=== PATIENT | female | born 1950 | race Two or more races ===

== ENCOUNTER 2024-03-17 18:06 | Emergency (ER) | payer MEDICARE, OTHER ==
[~2024-03-17] VITALS: Ht 152.4 cm; Wt 54.4 kg
[2024-03-17] MEDS ORDERED: ACETAMINOPHEN ES 500 MG TABLET ONE (18:36)
[2024-03-17] MEDS: ACETAMINOPHEN ES 500 MG TABLET PO ONE (18:39)
[2024-03-17] MEDS ORDERED: KETO10TA2 PO (20:33)
[2024-03-17] MEDS ORDERED: SUMATRIPTAN SUCCINATE 6 MG/0.5 ML VIAL SQ ONE (20:37)
[2024-03-17] MEDS ORDERED: KETOROLAC TROMETHAMINE INJ 30 MG/ML VIAL ONE (20:37)
[2024-03-17] MEDS: SUMATRIPTAN SUCCINATE 6 MG/0.5 ML VIAL SQ ONE (20:50)
[2024-03-17] MEDS: KETOROLAC TROMETHAMINE INJ 60 MG/2 ML VIAL IM ONE (20:50)
[2024-03-17 20:54] VITALS: BP 202/122; TEMP 97.8; O2SAT 99
== END 2024-03-17 20:54 | disposition home or self-care (01) ==
LOC: ER 18:10
DX: S13.4XXA Sprain of ligaments of cervical spine, initial encounter (principal); S09.8XXA Other specified injuries of head, initial encounter; S06.0X0A Concussion without loss of consciousness, initial encounter; M25.531 Pain in right wrist; M79.662 Pain in left lower leg; V43.62XA Car passenger injured in collision with other type car in traffic accident, initial encounter; Y93.89 Activity, other specified; Y92.488 Other paved roadways as the place of occurrence of the external cause; Y99.8 Other external cause status
CPT/HCPCS: 99285; 72125; 96372 ×2; 93005 ×2; 73590; 70450; 73110; J3030; J1885